=== PATIENT | female | born 1945 | race Caucasian/White ===

== ENCOUNTER 2018-11-17 19:31 | Inpatient (IN) | payer OTHER ==
[~2018-11-17] VITALS: Ht 162.5 cm; Wt 65.1 kg
--- NOTE | ~2018-11-17 | EKG ---
[place], [place] ELECTROCARDIOGRAM REPORT NAME: AJAY ZARCO UNIT #: [id number] ROOM: 420 DOCTOR: SUMMER DRAFT REPORT BIRTHDATE: [birth year] [facility] Test Date: 2018-11-17 Test Time: 20:06:40 Pat Name: AJAY ZARCO Department: Room: 420 Gender: F [employer] Supervisor: NASRA : 1945 Requested By: SYLVIE COVINGTON Order Number: [id number] Reading MD: Billy Mccormack MD Measurements Intervals [place] Rate: 108 P: 64 SC: 156 QRS: 48 QRSD: 92 T: 53 QT: 328 QTc: 440 Interpretive Statements sinus tachycardia Normal CCG Electronically Signed On 11-20-2018 14:25:46 PDT by Billy Mccormack MD CM:EKGRPT:ELECTROCARDIOGRAM REPORT 05 1425 SYLVIE BARCENAS DRAFT REPORT SYLVIE COVINGTON DO
--- NOTE | ~2018-11-17 | CON ---
[place], [place] REPORT OF CONSULTATION [id number] UNIT #: [id number] ROOM: 420 DOCTOR: PHD OVI ELIANA BIRTHDATE: [birth year] DOS: 11/18/2018 HISTORY OF PRESENT ILLNESS: The patient is a 73-year-old female referred by the hospitalist for Behavioral Health evaluation. At the present time, the patient is on the 4th floor at [facility]. She is a resident at [facility]. She has resided there since 10/18/2018. Since that time, she has had significant behavior issues which have escalated recently. While at the senior living, she has been walking around with her eyes closed and urinating in the middle of the dining room. She has also apparently been walking around naked and behaving intrusively with the other residents. She has been involuntarily committed to the hospital. Per her medical record, she does not use alcohol, tobacco or illegal drugs. She was unable to participate in the assessment due to somnolence. PAST MEDICAL HISTORY: Alzheimer's dementia, late onset; essential hypertension; generalized anxiety disorder; major depressive disorder; malignant neoplasm of the lower inner quadrant of female breast; pseudobulbar affect; schizoaffective disorder. MEDICATIONS: Vitamin D, Aricept, Nuedexta, Seroquel, Depakote, Namenda, Zestril, Arimidex, Lovenox, Vistaril, Dulcolax, milk of magnesia, Zofran, Tylenol, Rocephin, Restoril, morphine sulfate, [place] 5/325. The patient was lying in bed in no apparent distress. She had received Ativan earlier in the day due to agitation. DIAGNOSIS: Schizoaffective disorder. PLAN: I discussed the case with Dr. Holcomb. I will evaluate the patient again tomorrow to allow for further treatment of her UTI and then determine appropriateness for BHU placement. Thank you very much for this consult. Chel Plasencia, PhD CM:CONSTR:REPORT OF CONSULTATION 1605 11/19/18 0741 interface
--- NOTE | ~2018-11-17 | PR ---
[place], [place] PROGRESS NOTE [id number] #: [id number] ROOM: 420 DOCTOR: OVI, PHD ELIANA BIRTHDATE: [birth year] DOS: 11/19/2018 I followed up with the patient today regarding the [facility] appropriateness for the Senior Behavioral Health Unit. The patient was more alert today than she was yesterday. She, however, was very confused and did not respond questions appropriately. She has been calling out for her parents and yelling out in pain with the lightest of touch. She did not respond to orientation questions. DIAGNOSIS: Schizoaffective disorder. PLAN: Discussed the case with [facility] staff. Dr. Holcomb has agreed to admit the patient today once medically stable to address her new onset bizarre behaviors at her [facility]. Thank you very much for this consultation. Chel Plasencia, PhD CM:RIGOBERTO [phone] PHD ELIANA PLASENCIA 11/20/18 0111 interface
[2018-11-17 19:36] VITALS: BP 130/79
[2018-11-17 20:41] LABS: BASO % 0.1 % (0.0-1.0); EOS % 0.4 % (1.0-4.0); HEMATOCRIT 38.3 % (37.0-47.0); HEMOGLOBIN 12.7 g/dl (12.0-16.0); LYMPH # 0.6 10*3/uL (1.3-4.4); LYMPH % 5.2 % (27.0-41.0); MEAN CELL VOLUME 89.3 fl (81.0-99.0); MEAN CORPUSCULAR HGB 29.6 pg (27.0-31.0); MEAN CORPUSCULAR HGB CONC 33.2 g/dl (33.0-37.0); MEAN PLATELET VOLUME 10.6 fl (9.6-12.3); MONO % 9.2 % (3.0-9.0); NEUT # 9.3 10*3/uL (2.3-7.9); NEUT % 84.8 % (47.0-73.0); PLATELET COUNT AUTOMATED 200 10*3/uL (130-400); RED BLOOD COUNT 4.29 10*6/uL (4.10-5.10); RED CELL DISTRI WIDTH 15.4 % (0-14.5); WHITE BLOOD COUNT 10.9 10*3/uL (4.8-10.8)
[2018-11-17 20:59] LABS: ALBUMIN 3.1 gm/dl (3.1-4.5); ALKALINE PHOSPHATASE 88 U/L (45-117); BUN 13 mg/dl (7-24); CHLORIDE 101 mmol/L (98-107); CREATININE 0.78 mg/dL (0.55-1.02); POTASSIUM 3.6 mmol/L (3.5-5.1); SGOT/AST 12 IU/L (3-35); SGPT/ALT 16 U/L (12-78); SODIUM 134 mmol/L (136-145); TOTAL PROTEIN 7.2 gm/dL (6.4-8.2)
[2018-11-17 21:07] LABS: THYROID STIM HORMONE (HS) 0.636 uIU/ml (0.358-4.75)
[2018-11-17 21:09] LABS: ACETAMINOPHEN (TYLENOL) < 5.0 ug/ml (10-30); ETHYL ALCOHOL < 3.0 mg/dl (<3); TROPONIN I < 0.015 ng/ml (<0.045)
[2018-11-17 21:10] LABS: BILIRUBIN NEGATIVE (NEGATIVE); BLOOD 2+ (NEGATIVE); CLARITY SL CLOUDY (CLEAR); COLOR YELLOW (YELLOW); GLUCOSE NEGATIVE (NEGATIVE); KETONE 2+ (NEGATIVE); LEUKO ESTERASE 2+ (NEGATIVE); NITRITE POSITIVE (NEGATIVE)
[2018-11-17 21:23] LABS: BACTERIA 4+; MUCOUS 1+; WBC 31-40 wbc/hpf (0-5)
[2018-11-17 21:30] LABS: URINE AMPHETAMINES < 1000 (1000ng/ml); URINE BARBITURATES < 200 (200ng/ml); URINE BENZODIAZEPINES < 200 (200ng/ml); URINE CANNABINOIDS (THC) < 50 (50ng/ml); URINE COCAINE < 300 (300ng/ml); URINE METHADONE < 300 (300ng/ml); URINE OPIATES < 300 (300ng/ml)
[2018-11-17 21:31] LABS: URINE PHENCYCLIDINE < 25 (25ng/ml)
--- NOTE | 2018-11-17 21:43 | NUR ---
PATIENT RESTING EYES AT THIS TIME. RESP EASY AND NONLABORED. NO DISTRESS NOTED. RN WILL CONT TO MONITOR
--- NOTE | 2018-11-17 22:55 | NUR ---
PATIENT PULLED TWO IV'S OUT IN THE ER.
[2018-11-17 23:00] VITALS: BP 146/80
--- NOTE | 2018-11-17 23:00 | NUR ---
A 73, admitted to , under the services of RENAY Mccauley DO with a diagnosis of UTI, METABOLIC ENCEPHALOPATHY. Chief complaint is PSYCHOSIS. Patient arrived via bed from ER. Monitor applied. Initial assessment completed. Vital signs taken and recorded. RENAY MCCAULEY DO notified of admission to the unit. Orders received. See assessment for past medical history, medications and allergies. Patient and/or family oriented to unit. [facility]. Clothing/patient valuable form completed. LUIZ DALE
[2018-11-17] MEDS ORDERED: KLOR-CON 1010 ME1 PO (23:15)
--- NOTE | 2018-11-17 23:15 | NUR ---
NOTIFIED DR. BENEDICT AT THIS TIME THAT PATIENT IS CURRENTLY ATTEMPTING TO EAT THE HEART MONITOR. SHE IS CHEWING ON THE HEART MONITOR LEADS AND ELECTRODES.
[2018-11-17] MEDS ORDERED: ARICEPT10 M1 PO (23:18)
[2018-11-17] MEDS ORDERED: ARIMIDEX1 MG PO (23:24)
[2018-11-17] MEDS ORDERED: ATIVAN0.5 MG PO (23:25)
[2018-11-17] MEDS ORDERED: ATIVAN IM (23:25)
[2018-11-17] MEDS ORDERED: DULCOLAX10 M1 R (23:26)
[2018-11-17] MEDS ORDERED: ZESTRIL10 MG PO (23:29)
[2018-11-17] MEDS ORDERED: MOM30 M1 PO (23:30)
[2018-11-17] MEDS ORDERED: NAMENDA10 MG PO (23:30)
[2018-11-17] MEDS ORDERED: ZOLOFT100 MG PO (23:30)
[2018-11-17] MEDS ORDERED: TYLENOL325 M1 PO (23:36)
[2018-11-17] MEDS ORDERED: VISTARIL25 MG PO (23:39)
[2018-11-17] MEDS ORDERED: DEPAKOTE125 MG PO (23:40)
[2018-11-17] MEDS ORDERED: SEROQUEL25 MG PO (23:46)
[2018-11-17] MEDS ORDERED: NUED1CAP PO (23:49)
--- NOTE | 2018-11-17 23:52 | NUR ---
SPOKE WITH NURSE AT [facility]. WENT OVER MEDICATION LIST WITH HER SINCE THE LIST WAS NOT EXACTLY CLEAR ON WHAT THE PATIENT IS TO BE TAKING. ALSO ASKED HER WHAT THE PATIENTS BASELINE WAS, SHE STATED THAT SINCE THE PATIENT CAME TO THEIR FACILITY ON THE October, THAT SHE HAS BEEN ACTING OUT AND LIKE THIS. IT JUST ESCALATED OF RECENTLY
--- NOTE | 2018-11-18 00:04 | NUR ---
PATIEN AT THIS TIME IS RESTING IN BED. SLEEPING. BREATHING IS EASY AND REGULAR. IV FLUIDS ARE INFUSING. CALL LIGHT WITHIN REACH, WILL MONITOR
--- NOTE | 2018-11-18 00:35 | NUR ---
NOTIFIED [facility] OF CONSULT
--- NOTE | 2018-11-18 02:30 | NUR ---
PATIENT UP AND RIPPING OFF CLOTHES. RIPPED OUT IV AND WAS KICKING LEGS UP IN AIR. NOTIFIED DR. BENEDICT. ORDER RECIEVED FOR 1MG IV ATIVAN NOW
[2018-11-18 06:15] LABS: ALBUMIN 2.9 gm/dl (3.1-4.5); ALKALINE PHOSPHATASE 85 U/L (45-117); BUN 10 mg/dl (7-24); CHLORIDE 108 mmol/L (98-107); CHOLESTEROL 159 mg/dL (<200); CREATININE 0.66 mg/dL (0.55-1.02); HDL CHOLESTEROL 66 mg/dl (40-60); LDL CHOLESTEROL 77 mg/dL (9-159); PHOSPHOROUS 2.6 mg/dL (2.5-4.9); POTASSIUM 3.8 mmol/L (3.5-5.1); SGOT/AST 14 IU/L (3-35); SGPT/ALT 13 U/L (12-78); SODIUM 141 mmol/L (136-145); TOTAL PROTEIN 6.7 gm/dL (6.4-8.2); TRIGLYCERIDES 78 mg/dl (<150); VLDL CHOLESTEROL 16 mg/dL (6-40)
[2018-11-18 06:17] LABS: BASO % 0.3 % (0.0-1.0); EOS # 0.1 10*3/uL (0.0-0.4); EOS % 0.6 % (1.0-4.0); HEMATOCRIT 37.6 % (37.0-47.0); LYMPH # 0.7 10*3/uL (1.3-4.4); LYMPH % 7.2 % (27.0-41.0); MEAN CELL VOLUME 90.8 fl (81.0-99.0); MEAN CORPUSCULAR HGB CONC 31.9 g/dl (33.0-37.0); MEAN PLATELET VOLUME 10.7 fl (9.6-12.3); NEUT # 7.2 10*3/uL (2.3-7.9); NEUT % 80.5 % (47.0-73.0); PLATELET COUNT AUTOMATED 222 10*3/uL (130-400); RED BLOOD COUNT 4.14 10*6/uL (4.10-5.10); RED CELL DISTRI WIDTH 15.5 % (0-14.5)
[2018-11-18 06:21] LABS: THYROID STIM HORMONE (HS) 0.706 uIU/ml (0.358-4.75)
[2018-11-18 07:09] LABS: VITAMIN D, 25-HYDROXY 17.2 ng/mL (30-100)
--- NOTE | 2018-11-18 07:30 | NUR ---
REPORT RECIEVED FROM PM SHIFT RN. PT ASLEEP IN BED. NO OBVIOUS SIGNS/SYMPTOMS OF PAIN OR DISCOMFORT. RESPIRATIONS EASY AND NONLABORED. CALL LIGHT WITHIN REACH. WILL CONTINUE TO MONITOR.
[2018-11-18 08:00] VITALS: BP 108/73
--- NOTE | 2018-11-18 09:06 | NUR ---
PHYSICAL THERAPY Nursing screen received and chart reviewed. Physical therapy referral received. Thank you. Aleta Ernst,PT,DPT.
--- NOTE | 2018-11-18 09:06 | NUR ---
Nursing screen received and Occupational Therapy referral received. Thank you. Chanelle Cheney OTR/L
--- NOTE | 2018-11-18 11:08 | NUR ---
PHYSICAL THERAPY Physical therapy evaluation attempted. Patient medicated and lethargic at this time, per nursing. Will try again at a later time/date. Thank you. Aleta Ernst,PT,DPT.
--- NOTE | 2018-11-18 11:08 | NUR ---
Patient recently medicated per nursing for behaviors. Patient not appropriate for OT evaluation at this time. Chanelle Cheney OTR/L
--- NOTE | 2018-11-18 11:20 | NUR ---
Patients triage notes states patient came here from [facility] for U placement and that the patient is pink slipped. Asked by repair manager, in patient services to notify BHU. Contacted Sharon Blandon and notified her there is a patient on 4th floor that came in for her unit and she is on a pink slip. Patient just admitted, no H/P or any other information available at this time.
[2018-11-18 12:00] VITALS: BP 114/20
--- NOTE | 2018-11-18 13:46 | NUR ---
PHYSICAL THERAPY Physical therapy evaluation attempted. Patient lethargic at this time. Discussed patient with nursing. Will try again another date/time. Thank you. Aleta Ernst,PT,DPT.
--- NOTE | 2018-11-18 13:46 | NUR ---
Patient continue to be severely lethargic and not available for OT evaluation. OTR/L will attempt at a later date. Chanelle Cheney OTr/l
[2018-11-18 16:00] VITALS: BP 152/81
--- NOTE | 2018-11-18 16:26 | NUR ---
PT RESTING IN BED WITH NO OBVIOUS SIGNS/SYMPTOMS OF PAIN OR DISCOMFORT. PT REMAINS DROSWY AND LETHARGIC. PER HER DAUGHTER, SHE IS USUALLY NOT THIS DROSWY HOWEVER SHE IS CONFUSED. SHE VOICES CONCERN THAT SHE THINKS HER MOTHER MAY BE TOO HEAVILY MEDICATED, SHE STATES THEY RECENTLY CHANGED HER MEDICATIONS AT THE FACILITY SHE IS HERE FROM AND SINCE THESE CHANGES HER MOTHER HAS BEEN INCREASINGLY LETHARGIC. SHE IS PLEASANTLY CONFUSED AND YELLS OUT AT TIMES. SAFETY MEASURES INTACT, CALL LIGHT WITHIN REACH. WILL CONTINUE TO MONITOR.
[2018-11-18 20:00] VITALS: BP 120/90
[2018-11-19] VITALS: BP 125/61
--- NOTE | 2018-11-19 02:45 | NUR ---
PATIENT SLEEPING QUIETLY IN BED. NO SIGNS OR SYMPTOMS OF DISTRESS. BED ALARM ON. CALL LIGHT WITHIN REACH. BED IN LOWEST POSITION.
--- NOTE | 2018-11-19 06:46 | NUR ---
CALLED TO CLARIFY WHETHER PT IS PINK SLIPPED OR NOT. PT'S ER REPORT STATES SHE IS PINK SLIPPED, BUT THERE IS NO OTHER MENTION OF PINK SLIP OR PINK SLIP ON PHYSICAL CHART. STATES SHE WILL CLARIFY WITH DAY TEAM.
[2018-11-19 06:48] LABS: BASO % 0.4 % (0.0-1.0); EOS # 0.2 10*3/uL (0.0-0.4); HEMOGLOBIN 12.2 g/dl (12.0-16.0); LYMPH # 0.5 10*3/uL (1.3-4.4); LYMPH % 9.3 % (27.0-41.0); MEAN CORPUSCULAR HGB 28.6 pg (27.0-31.0); MEAN CORPUSCULAR HGB CONC 32.1 g/dl (33.0-37.0); MEAN PLATELET VOLUME 10.9 fl (9.6-12.3); MONO # 0.9 10*3/uL (0.1-1.0); MONO % 16.5 % (3.0-9.0); NEUT % 70.4 % (47.0-73.0); PLATELET COUNT AUTOMATED 194 10*3/uL (130-400); RED BLOOD COUNT 4.27 10*6/uL (4.10-5.10); RED CELL DISTRI WIDTH 15.3 % (0-14.5); WHITE BLOOD COUNT 5.7 10*3/uL (4.8-10.8)
[2018-11-19 06:57] LABS: BUN 8 mg/dl (7-24); CHLORIDE 103 mmol/L (98-107); CREATININE 0.72 mg/dL (0.55-1.02); POTASSIUM 3.7 mmol/L (3.5-5.1); SODIUM 138 mmol/L (136-145)
[2018-11-19 08:00] VITALS: BP 148/66
--- NOTE | 2018-11-19 09:52 | NUR ---
PT IS VERY CONFUSED AND DELUSIONAL. SCREAMS OUT IN PAIN WITH THE LIGHTEST TOUCH. SHE WILL NOT INITIATE EATING OR DRINKING ON HER OWN EITHER.
[2018-11-19] MEDS ORDERED: SEPTDS PO ×3 (10:00→11:23)
--- NOTE | 2018-11-19 11:11 | NUR ---
PT DC TO [facility] VIA WHEELCHAIR. REPORT GIVEN TO U RN. ALL BELONGINGS TAKEN WITH PT.
== END 2018-11-19 11:12 | disposition home health service (06) | DRG 71 ==
LOC: ED 19:31 → EDHOLD 21:38 → 4E 21:38
PROVIDERS: Internal Medicine; Student in an Organized Health Care Education/Training Program; ADMIT Internal Medicine
DX: G93.41 Metabolic encephalopathy (principal); N39.0 Urinary tract infection, site not specified; F02.81 Dementia in other diseases classified elsewhere, unspecified severity, with behavioral disturbance; F33.9 Major depressive disorder, recurrent, unspecified; E44.0 Moderate protein-calorie malnutrition; E87.1 Hypo-osmolality and hyponatremia; F25.9 Schizoaffective disorder, unspecified; G30.1 Alzheimer's disease with late onset; F41.1 Generalized anxiety disorder; I10 Essential (primary) hypertension; Z96.653 Presence of artificial knee joint, bilateral; R26.9 Unspecified abnormalities of gait and mobility; R45.1 Restlessness and agitation; E55.9 Vitamin D deficiency, unspecified; R31.9 Hematuria, unspecified; B96.89 Other specified bacterial agents as the cause of diseases classified elsewhere; R00.0 Tachycardia, unspecified; E87.8 Other disorders of electrolyte and fluid balance, not elsewhere classified; F48.2 Pseudobulbar affect; R73.9 Hyperglycemia, unspecified; Z90.710 Acquired absence of both cervix and uterus; Z90.49 Acquired absence of other specified parts of digestive tract; Z98.891 History of uterine scar from previous surgery; Z85.3 Personal history of malignant neoplasm of breast; Z88.8 Allergy status to other drugs, medicaments and biological substances; Z79.899 Other long term (current) drug therapy; Z68.24 Body mass index [BMI] 24.0-24.9, adult